=== PATIENT | female | born 2000 | race African-American/Black ===

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

== ENCOUNTER 2024-12-09 11:17 | Emergency (ER) | payer MEDICAID ==
[~2024-12-09] VITALS: Ht 165.1 cm; Wt 104.5 kg
[2024-12-09 11:30] VITALS: O2SAT 100
[2024-12-09] MEDS ORDERED: PERM60CR4 TP (12:20)
[2024-12-09 12:23] VITALS: BP 119/66; PULSE 87; RESP 16; TEMP 36.9; O2SAT 100
== END 2024-12-09 12:23 | disposition home or self-care (01) ==
LOC: ER 11:17
DX: R05.9 Cough, unspecified (principal); I86.8 Varicose veins of other specified sites; Z87.891 Personal history of nicotine dependence
CPT/HCPCS: 71045; 99283